=== PATIENT | male | born 1950 | race Caucasian/White ===

== ENCOUNTER 2017-07-01 13:07 | Inpatient (IN) | payer MEDICARE, OTHER ==
[2017-07-01] MEDS ORDERED: Sodium Chloride 0.9% 10 ML Syringe FLUSH PRN (13:32)
[2017-07-01] MEDS ORDERED: Sodium Chloride 0.9% 1,000 ML IV ONE (13:34)
--- NOTE | 2017-07-01 14:11 | EDM.PDOC ---
ED HPI GENERAL MEDICAL PROBLEM - General Chief Complaint: General Stated Complaint: weakness Time Seen by Provider: 07/01/17 13:30 Source of Information: Reports: Patient, EMS, Old Records History Limitations: Reports: Other (Unknown if intoxicated. Is somewhat confused about acute medical problems.) - History of Present Illness INITIAL COMMENTS - FREE TEXT/NARRATIVE: Pt. was found on the toilet, unable to ambulate, by his neighbor this morning. Pt. states that he spent several hours on the toilet today. He doesn't know exactly how long he was on the toilet, and doesn't remember what time he sad down on it. He states that he has been experiencing weakness in his legs for the past several days. He offers no other complaints and denies any discomfort otherwise. Pt. was somewhat confused for EMS, and thinks he last ate yesterday. He also drinks a pint of hard alcohol (whiskey) every 2 days, and thinks that his last drink was 2 days ago, but isn't 100% sure. He denies any street drug use. He was incontinent of stool and urine while enroute to the hospital. He denies any incontinence, diarrhea, vomiting, or nausea prior to today. Other than this , he offers no complaints. He states that Dr. Belle is is primary care provider and that he has a history of hypertension. He presents to the ER with prescriptions of amlodipine and metoprolol for 2012. He states that he has chosen not to treat his high blood pressure. He was seen in the ER by myself in 2016 for cellulitis secondary to an untreated cut. He was treated with Augmentin, and still had several doses of the medication left. Pt. states that he lives alone in [place], [place]. His closest relative is a sister in [place], [place]. 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 Onset: Gradual Onset Date: 06/30/17 Duration: Getting Worse Location: Reports: Generalized Associated Symptoms: Reports: Confusion, Other ("dizziness") Back Pain Score (Numeric/FACES): 6 - Related Data Allergies Allergy/AdvReac Type Severity Reaction Status Date / Time No Known Allergies Allergy Verified 07/01/17 13:37 Home Meds: Home Meds . [No Known Home Meds] 12/11/15 [History] Past Medical History Cardiovascular History: Reports: Hypertension Psychiatric History: Reports: Addiction (Drinks approx. pint of alcohol every 2 days.) - Past Surgical History HEENT Surgical History: Reports: Tonsillectomy Social & Family History - Tobacco Use Smoking Status *Q: Current Every Day Smoker Years of Tobacco use: 25 Packs/Tins Daily: 0.7 - Alcohol Use Alcohol Use History: Yes Days Per Week of Alcohol Use: 7 Number of Drinks Per Day Comment: "half pint of whiskey per day" Date of Last Drink: 06/30/17 Date/Time of Last Drink Comment: Thinks possibly last drink was yesterday- unsure. 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 in [employer]) ED ROS GENERAL - Review of Systems Review Of Systems: See Below Constitutional: Reports: Weakness HEENT: Reports: Vertigo Respiratory: Reports: No Symptoms Cardiovascular: Reports: Lightheadedness Endocrine: Reports: No Symptoms GI/Abdominal: Reports: Stool Incontinence : Reports: Incontinence Musculoskeletal: Reports: No Symptoms Skin: Reports: Rash, Erythema (several areas if skin stasis change/skin breakdown to backside), Change in Color Neurological: Reports: Confusion, Tremors, Difficulty Walking, Weakness Psychiatric: Reports: No Symptoms Hematologic/Lymphatic: Reports: No Symptoms Immunologic: Reports: No Symptoms ED EXAM, GENERAL - Physical Exam Exam: See Below Exam Limited By: No Limitations General Appearance: Alert, No Apparent Distress, Lethargic, Thin, Cachetic Eye Exam: Bilateral Eye: EOMI, Normal Fundi, Normal Inspection Ears: Normal External Exam Ear Exam: Bilateral Ear: Auricle Normal Nose: Normal Inspection, Normal Mucosa, No Blood Throat/Mouth: Normal Inspection, Normal Lips, Normal Oropharynx, Normal Voice, No Airway Compromise Head: Atraumatic, Normocephalic Neck: Normal Inspection, Supple, Non-Tender Respiratory/Chest: No Respiratory Distress, Lungs Clear, Normal Breath Sounds Cardiovascular: Normal Peripheral Pulses, Regular Rate, Rhythm, No Edema, No JVD , No Murmur Peripheral Pulses: 2+: Dorsalis Pedis (L), Dorsalis Pedis (R), 3+: Radial (L), Radial (R) GI/Abdominal: Normal Bowel Sounds, Soft, Non-Tender, No Organomegaly, No Distention (Male) Exam: Deferred Rectal (Males) Exam: Deferred Back Exam: Normal Inspection, Other (several areas of stasis erythema to buttocks and coccyx. Open area of superficial skin breakdown.) Extremities: Normal Inspection Neurological: Alert, CN II-XII Intact Psychiatric: Normal Affect, Normal Mood Skin Exam: Warm, Decubitus, Erythema Lymphatic: No Adenopathy EKG INTERPRETATION EKG Date: 07/01/17 Time: 14:42 Rhythm: NSR Rate (Beats/Min): 70 Adin: Normal P-Wave: Present QRS: Normal ST-T: Normal QT: Normal Comparison: NA - No Prior EKG Course - Vital Signs Last Recorded V/S: Last Vital Signs Temp 36.3 C 07/01/17 15:56 Pulse 96 07/01/17 15:56 Resp 20 07/01/17 15:56 BP 143/89 H 07/01/17 15:56 Pulse Ox 99 07/01/17 15:56 - Orders/Labs/Meds Orders: Active Orders 24 hr Category Date Time Status EKG Documentation Completion [RC] STAT Care 07/01/17 13:32 Ordered Chest 1V Frontal [CR] Stat Exams 07/01/17 13:33 Taken Head wo Cont [CT] Stat Exams 07/01/17 13:32 Taken CULTURE BLOOD [BC] Stat Lab 07/01/17 13:40 Received CULTURE BLOOD [BC] Stat Lab 07/01/17 13:50 Received Sodium Chloride 0.9% [Saline Flush] Med 07/01/17 13:32 Active 10 ml FLUSH ASDIRECTED PRN Blood Culture x2 Reflex Set [OM.PC] Stat Oth 07/01/17 13:33 Ordered Peripheral IV Insertion Adult [OM.PC] Routine Oth 07/01/17 13:33 Ordered Medication Orders Enoxaparin Sodium (Lovenox) 30 mg SUBCUT DAILY [facility] Folic Acid (Folic Acid) 1 mg PO DAILY [facility] Last Admin: 07/01/17 17:12 Dose: 1 mg Sodium Chloride (Normal Saline) 1,000 mls @ 250 mls/hr IV ASDIRECTED [facility] Last Admin: 07/01/17 15:00 Dose: 250 mls/hr Lactated Ringer's (Ringers, Lactated) 1,000 mls @ 200 mls/hr IV ASDIRECTED [facility] Last Admin: 07/01/17 17:12 Dose: 200 mls/hr Magnesium Sulfate (Magnesium Sulfate 4 Gm In Water 100 Ml) 100 mls @ 25 mls/hr IV ONETIME ONE Stop: 07/01/17 20:38 Last Admin: 07/01/17 17:12 Dose: 25 mls/hr Lorazepam (Ativan) 1 mg IVPUSH Q4H PRN PRN Reason: Agitation Multivitamins/Minerals (Thera M Plus) 1 tab PO DAILY [facility] Last Admin: 07/01/17 17:12 Dose: 1 tab Pantoprazole Sodium (Protonix Iv) 40 mg IVPUSH BID@0800,2000 [facility] Last Admin: 07/01/17 17:12 Dose: 40 mg Sodium Chloride (Saline Flush) 10 ml FLUSH ASDIRECTED PRN PRN Reason: Keep Vein Open Sodium Phosphate (Neutra-Phos) 500 mg PO BID [facility] Last Admin: 07/01/17 17:12 Dose: 500 mg Thiamine HCl (Vitamin B-1) 100 mg PO DAILY [facility] Last Admin: 07/01/17 17:12 Dose: 100 mg Pt. was given a 1,000ml fluid bolus initially (indication-rhabdomyolysis) and then a second liter at 250ml/hr. Pt. was subsequently started on a "banana bag" Pt. offered no complaints of chest pain or shortness of breath. UA obtained via quick cath. On Labs: Laboratory Tests 07/01/17 07/01/17 07/01/17 Range/Units 13:40 13:40 13:40 WBC 8.3 (4.0-10.0) x10^3/uL RBC 3.53 L (4.5-6.0) x10^6/uL Hgb 12.7 L D (14.0-18.0) g/dL Hct 36.1 L (40.0-52.0) % MCV 102.3 H (78.0-93.0) fL MCH 36.0 H (26.0-32.0) pg MCHC 35.2 (32.0-36.0) g/dL RDW Coeff of Aman 13.0 (10.0-15.0) % Plt Count 113 L (130-400) x10^3/uL Neut % (Auto) 82.4 H (50.0-80.0) % Lymph % (Auto) 6.6 L (25.0-50.0) % Mower % (Auto) 10.4 (2.0-11.0) % Eos % (Auto) 0.1 (0.0-4.0) % Baso % (Auto) 0.5 (0.2-1.2) % PT 11.7 (9.8-11.8) SEC INR 1.1 L (2.0-3.5) Sodium 137 (136-145) mmol/L Potassium 3.8 (3.5-5.1) mmol/L Chloride 97 L (98-107) mmol/L Carbon Dioxide 24 (21-32) mmol/L BUN 52 H D (7-18) mg/dL Creatinine 2.2 H D (0.70-1.30) mg/dL Est Cr Clr Drug Dosing 31.69 mL/min Estimated GFR (MDRD) 30 Glucose 169 H (74-106) mg/dL Lactic Acid (0.4-2.0) mmol/L Calcium 10.8 H (8.5-10.1) mg/dL Corrected Calcium 10.80 H (8.5-10.1) mg/dL Phosphorus (2.6-4.7) mg/dL Magnesium (1.8-2.4) mg/dL Total Bilirubin 1.1 H (0.2-1.0) mg/dL AST 162 H (15-37) U/L ALT 81 H (16-63) U/L Alkaline Phosphatase 78 (46-116) U/L Creatine Kinase 2054 H* (39-308) U/L Creatine Kinase Index 0.6 (0.0-4.0) % CK-MB (CK-2) 12.1 H (0.0-3.6) ng/mL C-Reactive Protein 11.3 H (<=0.9) mg/dL Total Protein 8.3 H (6.4-8.2) g/dL Albumin 4.0 (3.4-5.0) g/dL Globulin 4.3 Albumin/Globulin Ratio 0.93 TSH, Ultra Sensitive 1.203 (0.358-3.74) uIU/mL Urine Color (YELLOW) Urine Appearance (CLEAR) Urine pH (5.0-8.0) Ur Specific [place] Urine Protein (NEGATIVE) mg/dL Urine Glucose (UA) (NEGATIVE) mg/dL Urine Ketones (NEGATIVE) mg/dL Urine Occult Blood (NEGATIVE) Urine Nitrite (NEGATIVE) Urine Bilirubin (NEGATIVE) Urine Urobilinogen (0.2) EU/dL Ur Leukocyte Esterase (NEGATIVE) Urine RBC (NOT SEEN) /HPF Urine WBC (NOT SEEN) /HPF Ur Renal Epithelial Cell (NEGATIVE) /HPF Amorphous Sediment Urine Bacteria (NEGATIVE) /HPF Hyaline Casts (NEGATIVE) /HPF Granular Casts (NEGATIVE) /HPF Urine Mucus (NEGATIVE) /LPF Urine Opiates Screen (NEAGTIVE) Ur Buprenorphine Scrn (NEGATIVE) Ur Oxycodone Screen (NEGATIVE) Urine Methadone Screen (NEGATIVE) Ur Barbiturates Screen (NEGATIVE) Ur Tricyclics Screen (NEGATIVE) Ur Amphetamine Screen (NEGATIVE) U Methamphetamines Scrn (NEGATIVE) Urine MDMA Screen (NEGATIVE) U Benzodiazepines Scrn (NEGATIVE) U Cocaine Metab Screen (NEGATIVE) U Marijuana (THC) Screen (NEGATIVE) Ethyl Alcohol < 3 (0-3) mg/dL 07/01/17 07/01/17 07/01/17 Range/Units 13:40 13:40 14:43 WBC (4.0-10.0) x10^3/uL RBC (4.5-6.0) x10^6/uL Hgb (14.0-18.0) g/dL Hct (40.0-52.0) % MCV (78.0-93.0) fL MCH (26.0-32.0) pg MCHC (32.0-36.0) g/dL RDW Coeff of Aman (10.0-15.0) % Plt Count (130-400) x10^3/uL Neut % (Auto) (50.0-80.0) % Lymph % (Auto) (25.0-50.0) % Mower % (Auto) (2.0-11.0) % Eos % (Auto) (0.0-4.0) % Baso % (Auto) (0.2-1.2) % PT (9.8-11.8) SEC INR (2.0-3.5) Sodium (136-145) mmol/L Potassium (3.5-5.1) mmol/L Chloride (98-107) mmol/L Carbon Dioxide (21-32) mmol/L BUN (7-18) mg/dL Creatinine (0.70-1.30) mg/dL Est Cr Clr Drug Dosing mL/min Estimated GFR (MDRD) Glucose (74-106) mg/dL Lactic Acid 2.8 H (0.4-2.0) mmol/L Calcium (8.5-10.1) mg/dL Corrected Calcium (8.5-10.1) mg/dL Phosphorus 2.1 L (2.6-4.7) mg/dL Magnesium 1.4 L (1.8-2.4) mg/dL Total Bilirubin (0.2-1.0) mg/dL AST (15-37) U/L ALT (16-63) U/L Alkaline Phosphatase (46-116) U/L Creatine Kinase (39-308) U/L Creatine Kinase Index (0.0-4.0) % CK-MB (CK-2) (0.0-3.6) ng/mL C-Reactive Protein (<=0.9) mg/dL Total Protein (6.4-8.2) g/dL Albumin (3.4-5.0) g/dL Globulin Albumin/Globulin Ratio TSH, Ultra Sensitive (0.358-3.74) uIU/mL Urine Color Brown H (YELLOW) Urine Appearance Turbid H (CLEAR) Urine pH 5.5 (5.0-8.0) Ur Specific [place] >=1.030 Urine Protein >=300 H (NEGATIVE) mg/dL Urine Glucose (UA) 100 H (NEGATIVE) mg/dL Urine Ketones 40 H (NEGATIVE) mg/dL Urine Occult Blood Large H (NEGATIVE) Urine Nitrite Negative (NEGATIVE) Urine Bilirubin Large H (NEGATIVE) Urine Urobilinogen 4.0 H (0.2) EU/dL Ur Leukocyte Esterase Negative (NEGATIVE) Urine RBC 5-10 H (NOT SEEN) /HPF Urine WBC 0-5 (NOT SEEN) /HPF Ur Renal Epithelial Cell Occasional H (NEGATIVE) /HPF Amorphous Sediment Many Urine Bacteria Few H (NEGATIVE) /HPF Hyaline Casts Moderate H (NEGATIVE) /HPF Granular Casts Few H (NEGATIVE) /HPF Urine Mucus Few H (NEGATIVE) /LPF Urine Opiates Screen (NEAGTIVE) Ur Buprenorphine Scrn (NEGATIVE) Ur Oxycodone Screen (NEGATIVE) Urine Methadone Screen (NEGATIVE) Ur Barbiturates Screen (NEGATIVE) Ur Tricyclics Screen (NEGATIVE) Ur Amphetamine Screen (NEGATIVE) U Methamphetamines Scrn (NEGATIVE) Urine MDMA Screen (NEGATIVE) U Benzodiazepines Scrn (NEGATIVE) U Cocaine Metab Screen (NEGATIVE) U Marijuana (THC) Screen (NEGATIVE) Ethyl Alcohol (0-3) mg/dL 07/01/17 Range/Units 14:43 WBC (4.0-10.0) x10^3/uL RBC (4.5-6.0) x10^6/uL Hgb (14.0-18.0) g/dL Hct (40.0-52.0) % MCV (78.0-93.0) fL MCH (26.0-32.0) pg MCHC (32.0-36.0) g/dL RDW Coeff of Aman (10.0-15.0) % Plt Count (130-400) x10^3/uL Neut % (Auto) (50.0-80.0) % Lymph % (Auto) (25.0-50.0) % Mower % (Auto) (2.0-11.0) % Eos % (Auto) (0.0-4.0) % Baso % (Auto) (0.2-1.2) % PT (9.8-11.8) SEC INR (2.0-3.5) Sodium (136-145) mmol/L Potassium (3.5-5.1) mmol/L Chloride (98-107) mmol/L Carbon Dioxide (21-32) mmol/L BUN (7-18) mg/dL Creatinine (0.70-1.30) mg/dL Est Cr Clr Drug Dosing mL/min Estimated GFR (MDRD) Glucose (74-106) mg/dL Lactic Acid (0.4-2.0) mmol/L Calcium (8.5-10.1) mg/dL Corrected Calcium (8.5-10.1) mg/dL Phosphorus (2.6-4.7) mg/dL Magnesium (1.8-2.4) mg/dL Total Bilirubin (0.2-1.0) mg/dL AST (15-37) U/L ALT (16-63) U/L Alkaline Phosphatase (46-116) U/L Creatine Kinase (39-308) U/L Creatine Kinase Index (0.0-4.0) % CK-MB (CK-2) (0.0-3.6) ng/mL C-Reactive Protein (<=0.9) mg/dL Total Protein (6.4-8.2) g/dL Albumin (3.4-5.0) g/dL Globulin Albumin/Globulin Ratio TSH, Ultra Sensitive (0.358-3.74) uIU/mL Urine Color (YELLOW) Urine Appearance (CLEAR) Urine pH (5.0-8.0) Ur Specific [place] Urine Protein (NEGATIVE) mg/dL Urine Glucose (UA) (NEGATIVE) mg/dL Urine Ketones (NEGATIVE) mg/dL Urine Occult Blood (NEGATIVE) Urine Nitrite (NEGATIVE) Urine Bilirubin (NEGATIVE) Urine Urobilinogen (0.2) EU/dL Ur Leukocyte Esterase (NEGATIVE) Urine RBC (NOT SEEN) /HPF Urine WBC (NOT SEEN) /HPF Ur Renal Epithelial Cell (NEGATIVE) /HPF Amorphous Sediment Urine Bacteria (NEGATIVE) /HPF Hyaline Casts (NEGATIVE) /HPF Granular Casts (NEGATIVE) /HPF Urine Mucus (NEGATIVE) /LPF Urine Opiates Screen Negative (NEAGTIVE) Ur Buprenorphine Scrn Negative (NEGATIVE) Ur Oxycodone Screen Negative (NEGATIVE) Urine Methadone Screen Negative (NEGATIVE) Ur Barbiturates Screen Negative (NEGATIVE) Ur Tricyclics Screen Negative (NEGATIVE) Ur Amphetamine Screen Negative (NEGATIVE) U Methamphetamines Scrn Negative (NEGATIVE) Urine MDMA Screen Negative (NEGATIVE) U Benzodiazepines Scrn Negative (NEGATIVE) U Cocaine Metab Screen Negative (NEGATIVE) U Marijuana (THC) Screen Negative (NEGATIVE) Ethyl Alcohol (0-3) mg/dL Meds: Medications Generic Name Dose Route Start Last Admin Trade Name Freq PRN Reason Stop Dose Admin Enoxaparin Sodium 30 mg 07/02/17 08:00 Lovenox SUBCUT DAILY [facility] Folic Acid 1 mg 07/01/17 16:45 07/01/17 17:12 Folic Acid PO 1 mg DAILY [facility] Administration Sodium Chloride 1,000 mls @ 250 mls/hr 07/01/17 15:00 07/01/17 15:00 Normal Saline IV 250 mls/hr ASDIRECTED [facility] Administration Lactated Ringer's 1,000 mls @ 200 mls/hr 07/01/17 16:30 07/01/17 17:12 Ringers, Lactated IV 200 mls/hr ASDIRECTED [facility] Administration Magnesium Sulfate 100 mls @ 25 mls/hr 07/01/17 16:39 07/01/17 17:12 Magnesium Sulfate 4 Gm In Water 100 Ml IV 07/01/17 20:38 25 mls/hr ONETIME ONE Administration Lorazepam 1 mg 07/01/17 16:06 Ativan IVPUSH Q4H PRN Agitation Multivitamins/Minerals 1 tab 07/01/17 16:30 07/01/17 17:12 Thera M Plus PO 1 tab DAILY [facility] Administration Pantoprazole Sodium 40 mg 07/01/17 16:30 07/01/17 17:12 Protonix Iv IVPUSH 40 mg BID@0800,2000 [facility] Administration Sodium Chloride 10 ml 07/01/17 13:32 Saline Flush FLUSH ASDIRECTED PRN Keep Vein Open Sodium Phosphate 500 mg 07/01/17 17:00 07/01/17 17:12 Neutra-Phos PO 500 mg BID [facility] Administration Thiamine HCl 100 mg 07/01/17 16:45 07/01/17 17:12 Vitamin B-1 PO 100 mg DAILY [facility] Administration Discontinued Medications Generic Name Dose Route Start Last Admin Trade Name Freq PRN Reason Stop Dose Admin Sodium Chloride 1,000 mls @ 1,000 mls/hr 07/01/17 13:34 07/01/17 13:54 Normal Saline IV 07/01/17 14:33 1,000 mls/hr .BOLUS ONE Administration Departure - Departure Time of Disposition: 15:44 Disposition: Admitted As Inpatient 64 Clinical Impression: Acute renal injury due to hypovolemia, Rhabdomyolysis, Delirium tremens - Discharge Information - Problem List & Annotations (1) Acute renal injury due to hypovolemia SNOMED Code(s): 240235536 Code(s): N17.9 - ACUTE KIDNEY FAILURE, UNSPECIFIED; E86.1 - HYPOVOLEMIA Status: Acute Priority: High Current Visit: Yes (2) Rhabdomyolysis SNOMED Code(s): 552946529 Code(s): M62.82 - RHABDOMYOLYSIS Status: Acute Priority: High Current Visit: Yes Qualifiers: Encounter type: initial encounter (3) Delirium tremens SNOMED Code(s): 5606498 Code(s): F10.231 - ALCOHOL DEPENDENCE WITH WITHDRAWAL DELIRIUM Status: Acute Priority: High Current Visit: Yes (4) Hypertension SNOMED Code(s): 19251296 Code(s): I10 - ESSENTIAL (PRIMARY) HYPERTENSION Status: Acute Current Visit: Yes Qualifiers: Hypertension type: essential hypertension Qualified Code(s): I10 - Essential (primary) hypertension - My Orders Last 24 Hours: My Active Orders 07/01/17 13:32 EKG Documentation Completion [RC] STAT Head wo Cont [CT] Stat Sodium Chloride 0.9% [Saline Flush] 10 ml FLUSH ASDIRECTED PRN 07/01/17 13:33 Chest 1V Frontal [CR] Stat Blood Culture x2 Reflex Set [OM.PC] Stat Peripheral IV Insertion Adult [OM.PC] Routine 07/01/17 13:40 CULTURE BLOOD [BC] Stat 07/01/17 13:50 CULTURE BLOOD [BC] Stat - Assessment/Plan Last 24 Hours: My Active Orders 07/01/17 13:32 EKG Documentation Completion [RC] STAT Head wo Cont [CT] Stat Sodium Chloride 0.9% [Saline Flush] 10 ml FLUSH ASDIRECTED PRN 07/01/17 13:33 Chest 1V Frontal [CR] Stat Blood Culture x2 Reflex Set [OM.PC] Stat Peripheral IV Insertion Adult [OM.PC] Routine 07/01/17 13:40 CULTURE BLOOD [BC] Stat 07/01/17 13:50 CULTURE BLOOD [BC] Stat Assessment:: Acute kidney injury Hypovolemia Rhabdomyolisis Acute alcohol withdrawl and early DTs Plan: Normal saline 1000ml bolus given. Initialed second bolus NS at 250ml/hr. Will reevaluate pt.-at this point will start pt. on maintenance LR at 200ml/hr. Haley catheter indication: MARIANNE/hypovolemia/rhabdomyolysis and need for strict I and O. Mag sulfate 4 gm over 4 hours Replete phos. Start protonix 40mg IV BID Lovenox 30mg SQ daily for DVT prophylaxis (renally adjusted) start oral multi vitamin, thiamine, B12 and folic acid FOBT pending Repeat CBC, CMP, Mag, phos and CXR in am PT/OT evaluate and treat in AM
[2017-07-01 14:48] LABS: CHLORIDE,CL 97 mmol/L (98-107); SODIUM,NA 137 mmol/L (136-145)
[2017-07-01] MEDS ORDERED: Sodium Chloride 0.9% 1,000 ML IV SCH (15:00)
[2017-07-01] MEDS ORDERED: LORazepam 2 MG/ML SDV IVPUSH PRN (16:06)
[2017-07-01] MEDS ORDERED: Magnesium Sulfate/Water 100 ML IV ONE (16:39)
[2017-07-01] MEDS: Thiamine 100 MG Tab PO SCH (17:12)
[2017-07-01] MEDS: Phosphorus #1 250 MG Tab PO SCH ×2 (17:12→20:28)
[2017-07-01] MEDS: Multivitamins with Iron/Calcium/Folic Acid/Minerals Tab PO SCH (17:12)
[2017-07-01] MEDS: Lactated Ringers 1,000 ML IV SCH (17:12)
[2017-07-01] MEDS: Pantoprazole 40 MG Vial IVPUSH SCH (17:12)
[2017-07-01] MEDS: Folic Acid 1 MG Tab PO SCH (17:12)
[2017-07-02] MEDS: Lactated Ringers 1,000 ML IV SCH ×3 (00:10→06:36)
[2017-07-02] MEDS: Phosphorus #1 250 MG Tab PO SCH ×2 (07:36→20:45)
[2017-07-02] MEDS: Multivitamins with Iron/Calcium/Folic Acid/Minerals Tab PO SCH (07:36)
[2017-07-02] MEDS: Pantoprazole 40 MG Vial IVPUSH SCH (07:36)
[2017-07-02] MEDS: Thiamine 100 MG Tab PO SCH (07:36)
[2017-07-02] MEDS: Folic Acid 1 MG Tab PO SCH (07:36)
[2017-07-02] MEDS ORDERED: Enoxaparin 30 MG/0.3 ML Syringe SUBCUT SCH (08:00)
[2017-07-02] MEDS: Sodium Chloride 0.9% with KCl 1,000 ML IV SCH ×2 (09:06→17:17)
--- NOTE | 2017-07-02 11:13 | PCM.PN ---
- General Info Date of Service: 07/02/17 Admission Dx/Problem (Free Text): Subjective: Patient was admitted yesterday after coming in by EMS for weakness. Found by his neighbor unable to get off toilet. Unknown how long he was there may be day or more. He lives alone quite confined to his house otherwise. He has a neighbor who checks them and another lady who goes to the store for him. He drinks at least a half a pint of whiskey daily. He is not having any withdrawal symptoms now. He appeared quite dehydrated with some acute kidney injury on admission, IV fluids were started. He had some rhabdo and mild pressure ulceration sitting on toilet, CPK is coming down. He denies any pain or focal complaints. Physician's orthopedic physician assistant reported he had negative CT head and chest x-ray. Objective: Vital signs are normal. He is quite check second thin. Affect is slightly slowed. He has no gross tremor or diaphoresis. Heart and lungs are clear abdomen is soft and nontender. Muscle wasting of extremities. She requires assistance of two and still has difficulty standing, generally unable to ambulate. Assessment and plan: Acute kidney injury is improving with IV fluid challenge. Given low potassium will switch to normal saline with 40 [facility] KCl continue fluids at one 25 mL for another day recheck chemistry in a.m. and then probably stop fluids and DC Haley catheter. Mild rhabdomyolysis with CK less than 5000, trending downward, I don't see this contributing to MARIANNE at this time. He is severely deconditioned. Physical therapy is recommending detention. PT has not seen patient yet. He lives alone he would be somewhat vulnerable and his current physical state. Mentally he still appears mostly intact. He has anemia, noniron deficient, I suspect this is from chronic alcohol use, perhaps some mild cirrhosis but otherwise liver function appears grossly intact. Not going through any gross alcohol withdrawals currently, can switch CIWA to PRN. Blood pressure currently okay had been on medicine for hypertension in the past. - Patient Data Vitals - Most Recent: Last Vital Signs Temp 36.8 C 07/02/17 10:00 Pulse 70 07/02/17 10:00 Resp 16 07/02/17 10:00 BP 138/79 07/02/17 10:00 Pulse Ox 96 07/02/17 10:00 Weight - Most Recent: 57.262 kg I&O - Last 24 Hours: Intake & Output 07/01/17 07/02/17 07/02/17 22:59 06:59 14:59 Intake Total 378 3866 615 Output Total 405 Balance 378 5049 615 Lab Results Last 24 Hours: Laboratory Results - last 24 hr 07/02/17 07/02/17 07/02/17 Range/Units 06:10 06:40 06:40 WBC 4.5 (4.0-10.0) x10^3/uL RBC 2.56 L (4.5-6.0) x10^6/uL Hgb 9.3 L D (14.0-18.0) g/dL Hct 25.9 L (40.0-52.0) % MCV 101.2 H (78.0-93.0) fL MCH 36.3 H (26.0-32.0) pg MCHC 35.9 (32.0-36.0) g/dL RDW Coeff of Aman 12.7 (10.0-15.0) % Plt Count 77 L (130-400) x10^3/uL Neut % (Auto) 67.0 (50.0-80.0) % Lymph % (Auto) 17.0 L (25.0-50.0) % Winkler % (Auto) 13.0 H (2.0-11.0) % Eos % (Auto) 2.6 (0.0-4.0) % Baso % (Auto) 0.4 (0.2-1.2) % ESR 31 H (0-16) mm/hr Sodium 141 (136-145) mmol/L Potassium 2.8 L* (3.5-5.1) mmol/L Chloride 106 (98-107) mmol/L Carbon Dioxide 26 (21-32) mmol/L BUN 41 H (7-18) mg/dL Creatinine 1.4 H (0.70-1.30) mg/dL Est Cr Clr Drug Dosing 40.33 mL/min Estimated GFR (MDRD) 50 Glucose 142 H (74-106) mg/dL POC Glucose 137 H (74-106) mg/dL Calcium 9.0 D (8.5-10.1) mg/dL Corrected Calcium 10.20 H (8.5-10.1) mg/dL Magnesium 2.0 (1.8-2.4) mg/dL Iron (65-175) ug/dL TIBC (250-450) ug/dL % Saturation (20.0-50.0) % Total Bilirubin 0.8 (0.2-1.0) mg/dL AST 103 H (15-37) U/L ALT 48 (16-63) U/L Alkaline Phosphatase 52 (46-116) U/L Creatine Kinase (39-308) U/L C-Reactive Protein 6.5 H (<=0.9) mg/dL Total Protein 5.4 L (6.4-8.2) g/dL Albumin 2.5 L (3.4-5.0) g/dL Globulin 2.9 Albumin/Globulin Ratio 0.86 Urine Color (YELLOW) Urine Appearance (CLEAR) Urine pH (5.0-8.0) Ur Specific Fitzwilliam Urine Protein (NEGATIVE) mg/dL Urine Glucose (UA) (NEGATIVE) mg/dL Urine Ketones (NEGATIVE) mg/dL Urine Occult Blood (NEGATIVE) Urine Nitrite (NEGATIVE) Urine Bilirubin (NEGATIVE) Urine Urobilinogen (0.2) EU/dL Ur Leukocyte Esterase (NEGATIVE) 07/02/17 07/02/17 07/02/17 Range/Units 06:40 07:47 08:55 WBC (4.0-10.0) x10^3/uL RBC (4.5-6.0) x10^6/uL Hgb (14.0-18.0) g/dL Hct (40.0-52.0) % MCV (78.0-93.0) fL MCH (26.0-32.0) pg MCHC (32.0-36.0) g/dL RDW Coeff of Aman (10.0-15.0) % Plt Count (130-400) x10^3/uL Neut % (Auto) (50.0-80.0) % Lymph % (Auto) (25.0-50.0) % Winkler % (Auto) (2.0-11.0) % Eos % (Auto) (0.0-4.0) % Baso % (Auto) (0.2-1.2) % ESR (0-16) mm/hr Sodium (136-145) mmol/L Potassium (3.5-5.1) mmol/L Chloride (98-107) mmol/L Carbon Dioxide (21-32) mmol/L BUN (7-18) mg/dL Creatinine (0.70-1.30) mg/dL Est Cr Clr Drug Dosing mL/min Estimated GFR (MDRD) Glucose (74-106) mg/dL POC Glucose (74-106) mg/dL Calcium (8.5-10.1) mg/dL Corrected Calcium (8.5-10.1) mg/dL Magnesium (1.8-2.4) mg/dL Iron 65 (65-175) ug/dL TIBC 128 L (250-450) ug/dL % Saturation 50.8 H (20.0-50.0) % Total Bilirubin (0.2-1.0) mg/dL AST (15-37) U/L ALT (16-63) U/L Alkaline Phosphatase (46-116) U/L Creatine Kinase 940 H* (39-308) U/L C-Reactive Protein (<=0.9) mg/dL Total Protein (6.4-8.2) g/dL Albumin (3.4-5.0) g/dL Globulin Albumin/Globulin Ratio Urine Color Yellow (YELLOW) Urine Appearance Slightly cloudy H (CLEAR) Urine pH 5.5 (5.0-8.0) Ur Specific Fitzwilliam 1.025 Urine Protein 100 H (NEGATIVE) mg/dL Urine Glucose (UA) Negative (NEGATIVE) mg/dL Urine Ketones Trace H (NEGATIVE) mg/dL Urine Occult Blood Large H (NEGATIVE) Urine Nitrite Negative (NEGATIVE) Urine Bilirubin Moderate H (NEGATIVE) Urine Urobilinogen 1.0 (0.2) EU/dL Ur Leukocyte Esterase Negative (NEGATIVE) Med Orders - Current: Current Medications Enoxaparin Sodium (Lovenox) 30 mg SUBCUT DAILY [facility] Last Admin: 07/02/17 07:36 Dose: 30 mg Folic Acid (Folic Acid) 1 mg PO DAILY [facility] Last Admin: 07/02/17 07:36 Dose: 1 mg Potassium Chloride/Sodium Chloride (Normal Saline With 40 Meq Kcl) 1,000 mls @ 125 mls/hr IV ASDIRECTED [facility] Last Admin: 07/02/17 09:06 Dose: 125 mls/hr Lorazepam (Ativan) 1 mg IVPUSH Q4H PRN PRN Reason: Agitation Multivitamins/Minerals (Thera M Plus) 1 tab PO DAILY [facility] Last Admin: 07/02/17 07:36 Dose: 1 tab Pantoprazole Sodium (Protonix Iv) 40 mg IVPUSH BID@799,1999 [facility] Last Admin: 07/02/17 07:36 Dose: 40 mg Sodium Chloride (Saline Flush) 10 ml FLUSH ASDIRECTED PRN PRN Reason: Keep Vein Open Sodium Phosphate (Neutra-Phos) 500 mg PO BID [facility] Last Admin: 07/02/17 07:36 Dose: 500 mg Thiamine HCl (Vitamin B-1) 100 mg PO DAILY [facility] Last Admin: 07/02/17 07:36 Dose: 100 mg Discontinued Medications Sodium Chloride (Normal Saline) 1,000 mls @ 1,000 mls/hr IV .BOLUS ONE Stop: 07/01/17 14:33 Last Admin: 07/01/17 13:54 Dose: 1,000 mls/hr Sodium Chloride (Normal Saline) 1,000 mls @ 250 mls/hr IV ASDIRECTED [facility] Stop: 07/02/17 00:49 Last Admin: 07/01/17 15:00 Dose: 250 mls/hr Lactated Ringer's (Ringers, Lactated) 1,000 mls @ 200 mls/hr IV ASDIRECTED [facility] Last Admin: 07/02/17 06:36 Dose: 200 mls/hr Magnesium Sulfate (Magnesium Sulfate 4 Gm In Water 100 Ml) 100 mls @ 25 mls/hr IV ONETIME ONE Stop: 07/01/17 20:38 Last Admin: 07/01/17 17:12 Dose: 25 mls/hr - Problem List Review Problem List Initiated/Reviewed/Updated: Yes - My Orders Last 24 Hours: My Active Orders 07/01/17 16:39 Consult to Physical Therapy [PT Evaluation and Treatment] [CONS] Routine 07/02/17 08:30 Sodium Chloride 0.9% with KCl [Normal Saline with 40 mEq KCl] 1,000 ml IV ASDIRECTED 07/02/17 08:55 FOLATE [REF] Routine VITAMIN B12 [REF] Routine
[2017-07-03] MEDS: Sodium Chloride 0.9% with KCl 1,000 ML IV SCH ×3 (01:21→21:01)
[2017-07-03] MEDS: Phosphorus #1 250 MG Tab PO SCH ×2 (07:44→20:02)
[2017-07-03] MEDS: Thiamine 100 MG Tab PO SCH (07:44)
[2017-07-03] MEDS: Multivitamins with Iron/Calcium/Folic Acid/Minerals Tab PO SCH (07:44)
[2017-07-03] MEDS: Folic Acid 1 MG Tab PO SCH (07:44)
[2017-07-03 07:52] LABS: CHLORIDE,CL 109 mmol/L (98-107); SODIUM,NA 142 mmol/L (136-145)
[2017-07-03] MEDS: Pantoprazole 40 MG Vial IVPUSH SCH ×2 (09:50→20:02)
--- NOTE | 2017-07-03 09:51 | PN ---
Progress Note for JEANMARIE SALVADOR Date: 07/03/2017 Room #: VM.203 SUBJECTIVE: This is hospital day #3 on a 67-year-old admitted with weakness. He had been found down, unable to get up off the toilet. He had acute renal failure with a creatinine up to 2.2. He had mild rhabdomyolysis. The patient had a Haley catheter placed, but states he had no problem passing urine or voiding prior to admission. He did have significantly low potassium and magnesium. These have been replaced IV. He has been on IV fluids. He is making good urine. He unfortunately has dropped his hemoglobin now from 12.7 to 9.3. Lovenox was stopped yesterday and then down to 8.5 today. Hemoccult was positive, but he denies any blood or black stools. Telemetry has been monitored. There have been no arrhythmias or tachycardia. He has been afebrile. He has a rare occasional cough, but denies shortness of breath. He had a chest x-ray on admission which did not show any infection. Otherwise, the patient admits he drinks alcohol and smokes, but had been unable to drink for about 2 weeks. Random CIWA during the night was only 1. He has not been withdrawing vitally. OBJECTIVE: Vital Signs: Temperature 98.2, pulse 68, blood pressure 144/80, respiratory rate 18, and O2 of 91 on room air. General: He is in no acute distress. Heart: Regular rate and rhythm without murmur. Lungs: Sounds are clear to auscultation bilaterally without crackles or wheezes. Abdomen: Positive bowel sounds. Soft and nontender. Extremities: Warm and dry. No edema. Mental Status: He is alert. He is aware he is at the hospital. He says he has no family locally. A neighbor helps him make decisions if he is not able. Otherwise, the patient does get occasionally confused, does talk to his call light, so does have some confusion. LABORATORY DATA: Lab work again shows normal white count 4.4, hemoglobin 8.5, platelets 92, they had dropped to 77 yesterday, but back up to 92 today. Sodium 142, potassium 3.4, chloride 109, bicarb 25, BUN 28, creatinine 1, glucose 144, albumin 2.3, CK down to 348 from 1999, AST bumped up slightly to 127, but it was 162 on admission, bilirubin 0.8, ALT normal at 57, and alkaline phosphatase normal at 53. Urine drug screen was negative. ASSESSMENT: 1. Generalized weakness, deconditioning, probably related to chronic alcoholism with an acute episode of acute renal failure and rhabdomyolysis, both improving. 2. Acute blood loss anemia due to gastrointestinal bleeding. Possible source could be gastritis given chronic alcohol use. He denies any aspirin or NSAID use. At this point, I will start him on some IV Protonix q.12 hours. We will check a hemoglobin this afternoon. His Lovenox has already been discontinued. 3. History of hypertension. He has been off medications for quite some time. We will continue to monitor. 4. History of alcohol abuse. He is 2 weeks out from using alcohol with no withdrawals. We will continue to monitor closely. Music Artist involved. 5. History of smoking. He declines a nicotine patch. PLAN: At this point, the patient will continue acute cares with IV fluids for his hypokalemia and hypomagnesemia. I will repeat lab work tomorrow. We will slow his fluids down to 90 an hour, but hopefully those can be stopped tomorrow. He will be up and working with therapies and most likely transition over to swing bed tomorrow. We will monitor hemoglobin this afternoon and again tomorrow, transfuse if blood counts go below 7. He will be on SCDs for DVT prophylaxis. MKA: 07/03/2017 08:57:58 MODL: 07/03/2017 09:17:37 /[id number]
[2017-07-04 08:09] LABS: CHLORIDE,CL 109 mmol/L (98-107); SODIUM,NA 140 mmol/L (136-145)
[2017-07-04] MEDS: Pantoprazole 40 MG Vial IVPUSH SCH (08:51)
[2017-07-04] MEDS: Multivitamins with Iron/Calcium/Folic Acid/Minerals Tab PO SCH (08:56)
[2017-07-04] MEDS: Folic Acid 1 MG Tab PO SCH (08:56)
[2017-07-04] MEDS: Thiamine 100 MG Tab PO SCH (08:57)
[2017-07-04] MEDS ORDERED: Magnesium Sulfate/Water 2 GM in Premix Bag 1 BAG IV ONE (10:06)
[2017-07-04] MEDS: Phosphorus #1 250 MG Tab PO SCH ×2 (10:08→10:28)
[2017-07-04] MEDS: traZODone 50 MG Tab PO SCH ×2 (10:09→21:04)
[2017-07-04] MEDS: Nicotine 14 MG/24 Hr Patch TRDERM SCH (10:25)
[2017-07-04] MEDS: Pantoprazole 40 MG Tab.CR PO SCH (10:27)
[2017-07-04] MEDS: Magnesium Oxide 400 MG Tab PO SCH ×2 (10:27→21:05)
[2017-07-04] MEDS: FLUoxetine 20 MG Cap PO SCH (10:27)
[2017-07-04] MEDS: NS + KCl 20mEq/L 1,000 ML IV SCH (10:31)
--- NOTE | 2017-07-04 13:24 | PN ---
Progress Note for JEANMARIE SALVADOR Date: 07/04/2017 Room #: VM.203 SUBJECTIVE: The patient is feeling fairly weak, not very motivated to do much. Yesterday, he had refused physical therapy. He has been noted to be incontinent. The patient is having a difficult time sleeping. He is wondering about nicotine patches as he has been a smoker about a half a pack a day. The patient has never been into chemical dependency treatment before nor AA before. The patient does not have much of an appetite. To note, the patient used to be on blood pressure medications as he has been here on his CIWA protocol. His blood pressure has just been minimally elevated and so we have opted not to place him on antihypertensive medication at the present time. OBJECTIVE: Vital Signs: Temperature is 36.4, pulse 73, blood pressure is 151/88, respiratory rate 18, sats are 97%. Skin: Pale, warm, and dry. Heart: Regular rate and rhythm. Lungs: Have diminished breath sounds on bases. Abdomen: Bowel sounds are present. He does have slight epigastric tenderness. Extremities: Slender, thin. No edema. His skin is noted to be pale. Neurologic: He moves all extremities, however, he does appear to be weak with transitions in bed. Psychiatric: He is very sad, depressed, very quiet speech. Does not maintain good eye contact. LABORATORY DATA: His white blood cell count is 5.9, hemoglobin is stable at 8.6, platelets are 103, slightly improved. MCV is 102.9. Pro-time is 12.0. INR 1.1, which is normal. PTT 24.1, normal is 22 to 34. Sodium 140, potassium 4.0, creatinine 1.0. GFR greater than 60. Glucose 127, calcium 8.6, magnesium low at 1.1. Total bilirubin is 0.8, direct bilirubin 0.35. AST is 148. ALT is 77. CK yesterday was 348. Albumin low at 2.3. Amylase is elevated at 86. IMPRESSION: 1. Rhabdomyolysis. 2. Alcohol withdrawal. 3. Pancreatitis. 4. Depression. 5. Hyperglycemia. 6. Thrombocytopenia related to alcoholism. 7. Tobacco use. 8. Insomnia. PLAN: The patient is still not medically stable to be discharged nor placed on swing bed. We will reduce his IV rate as well as IV potassium. We will start him on oral potassium. We will give him IV magnesium as well as oral magnesium to start. We will start him on antidepressant, Prozac. We will start trazodone for sleep if he is having difficulty sleeping. We will switch his Protonix from IV to oral. We will check his phosphorus level tomorrow. We will check also a hemoglobin A1c tomorrow, however, his blood sugar right now is probably elevated due to stress with withdrawal, but apparently he has had hyperglycemia in the past. He is on SCDs for DVT prophylaxis until he gets up walking around. He was encouraged to work with physical therapy to become ambulatory. We will check a urine on him as well to make certain that his urine is okay and I am not certain that if Community Service Specialist has talked about where the patient may go through chemical dependency care at. GM07/04/2017 10:18:07 MODL: 07/04/2017 13:16:00 /[id number]
[2017-07-05] MEDS: NS + KCl 20mEq/L 1,000 ML IV SCH (05:49)
[2017-07-05] MEDS: Pantoprazole 40 MG Tab.CR PO SCH (06:25)
[2017-07-05] MEDS: Nicotine 14 MG/24 Hr Patch TRDERM SCH (07:53)
[2017-07-05] MEDS: FLUoxetine 20 MG Cap PO SCH (07:54)
[2017-07-05] MEDS: Multivitamins with Iron/Calcium/Folic Acid/Minerals Tab PO SCH (07:54)
[2017-07-05] MEDS: Magnesium Oxide 400 MG Tab PO SCH ×2 (07:54→20:42)
[2017-07-05 08:51] LABS: CHLORIDE,CL 107 mmol/L (98-107); SODIUM,NA 138 mmol/L (136-145)
[2017-07-05] MEDS: Folic Acid 1 MG Tab PO SCH (11:00)
[2017-07-05] MEDS: Thiamine 100 MG Tab PO SCH (11:00)
[2017-07-05] MEDS: Phosphorus #1 250 MG Tab PO SCH ×2 (11:00→20:42)
--- NOTE | 2017-07-05 11:41 | PN ---
Progress Note for JEANMARIE SALVADOR Date: 07/05/2017 Room #: VM.203 SUBJECTIVE: The patient has been relying on nursing staff to do many of his cares for him and not feeling very motivated. He has not thrown up. He denies coughing up much material. He has had a nicotine patch that was started yesterday. The patient is a little bit slow mentation-schaefer. He does not recall if he had a memory test done yet by Occupational Therapy. OBJECTIVE: Vital Signs: His weight is 71.2 kg. Temperature is 36.3, pulse is 86, blood pressure has dropped to 117/77, respiratory rate is 20, and saturations are 94% on room air. Skin: Tull, warm, and dry. Heart: Regular rate and rhythm. Lungs: Some diminished breath sounds bilaterally. Abdomen: Soft. Question slight epigastric tenderness. Extremities: He does have some peripheral edema on his legs. LABORATORY DATA: His lab today came back showing that his hemoglobin is stable at 8.6, white blood cell count 6.4, MCV has improved to 101.7, platelets are improved up to 136 with 58 segs, 11 lymphs, 24 monos, and 5 eosinophiles. Sodium is 130, potassium 3.9, creatinine 0.9, BUN is 15, GFR is greater than 60, and glucose is 141. Hemoglobin A1c is 5.2. Calcium corrected is 10.42. Phosphorus is slightly low at 2.4. AST has improved to 103; ALT 65, improved. Albumin is 2.1. Amylase is slightly improved to 741, lipase is elevated at 3940. TSH is normal at 1.47. IMPRESSION: 1. Rhabdomyolysis, improving. 2. Alcohol withdrawal. 3. Pancreatitis. 4. Depression. 5. Hyperglycemia. 6. Thrombocytopenia, improving. 7. Tobacco use. 8. Hypophosphatemia. 9. Depression. 10.Insomnia. 11.Malnutrition. PLAN: We will increase the patient's oral phosphorus intake today. We will saline lock after his current IV fluids are in. We will check iron storage values on the patient. We will continue him on Protonix orally today. We will add some support landon as we feel that some of his edema is related to malnutrition, and we will have him walk with assistance with nursing, and tomorrow, we will have Physical Therapy assess to see how strong he is to see if he is stable to go to swing bed yet versus to consider inpatient treatment for chemical dependency. GM07/05/2017 11:06:31 MODL: 07/05/2017 11:36:08 /[id number]
[2017-07-05] MEDS: traZODone 50 MG Tab PO SCH (20:42)
[2017-07-06 05:10] VITALS: BP 146/88
[2017-07-06] MEDS: Pantoprazole 40 MG Tab.CR PO SCH (06:35)
[2017-07-06 07:10] LABS: CHLORIDE,CL 104 mmol/L (98-107); SODIUM,NA 136 mmol/L (136-145)
[2017-07-06] MEDS: Nicotine 14 MG/24 Hr Patch TRDERM SCH (07:54)
[2017-07-06] MEDS: Magnesium Oxide 400 MG Tab PO SCH ×2 (07:55→08:00)
[2017-07-06] MEDS: Phosphorus #1 250 MG Tab PO SCH ×2 (07:55→08:00)
[2017-07-06] MEDS: Thiamine 100 MG Tab PO SCH ×2 (07:55→08:00)
[2017-07-06] MEDS: FLUoxetine 20 MG Cap PO SCH ×2 (07:55→08:00)
[2017-07-06] MEDS: Multivitamins with Iron/Calcium/Folic Acid/Minerals Tab PO SCH ×2 (07:55→08:00)
[2017-07-06] MEDS: Folic Acid 1 MG Tab PO SCH ×2 (07:55→08:00)
--- NOTE | 2017-07-06 12:59 | PCM.DCSUM1 ---
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 -Atherosclerosis; carotid artery disease and peripheral vascular disease, noted in the past although he does have palpable pedal pulses now -Hx hypertension; no longer takes antihypertensives and BP is OK -Hx hyperlipidemia; has been on statins in the past -Macrocytic anemia with normal iron -Elevated liver enzymes -Mild pressure sores on coccyx and sacrum Reason for Admission: -Extreme weakness, found by a neighbor unable to get off the toilet -Has started using a walker the past 2 years on his own because of generalized weakness -Drinking pints of whiskey daily Initial Findings: -Shallow skin breakdown over her sacrum and coccyx, erythema, exam except for generalized weakness otherwise rather unremarkable -Hb 8.6 -WBC 6400 -MCV 102 -Na+ 138, K+ 3.9, creatinine 0.9, GFR 63, glucose 154 nonfasting, A1c 5.2, Ca++ 8.9, 10.4 corrected, iron saturation 45%, total bilirubin 0.6, ALT elevated at 65, CK normal at 91, albumin low at 2.1 (normal 3.4-5.0), amylase 741 (normal < 115), lipase 3940 (normal <393), TSH normal at 1.5; urinalysis normal Treatment and Course in Hospital: He had IV fluid and was started on thiamine and multivitamins. Also given when necessary Ativan but didnt really need it, did not have withdrawal symptoms. Started on nicotine patches, oral Protonix and magnesium; started on Prozac 20 mg daily, trazodone 100 mg daily at bedtime. Scheduled for Geriatric Functional Assessment, memory assessment, but has not yet had that. Nurses noted that he seemed to have some trouble swallowing. Not yet scheduled for swallowing eval. BP remained normal off of antihypertensives. He walked with a walker in PT, not yet strong enough to go home. Condition on Discharge: -Answers questions appropriately -VS OK -Heart and lung sounds normal, no abdominal pain or tenderness -Clubbing of fingers and obvious dyspnea when speaking, but breath sounds are fairly good -Starting to walk with walker Discharge Plan: -To swing bed, not known yet whether he will recover well enough to go home -Geriatric Functional Assessment, memory testing pending -May need video swallowing eval in the future if he keeps having trouble swallowing -Continue same medications as in hospital except for the IV and no longer needs Valium - Discharge Data Discharge Date: 07/06/17 Discharge Disposition: DC/Tfer W/I Hosp To Swing 61 Condition: Good - Patient Summary/Data Consults: Consultations 07/01/17 16:39 Consult to Physical Therapy [PT Evaluation and Treatment] [CONS] Routine 07/01/17 16:52 OT Evaluation and Treatment [CONS] Routine 07/01/17 17:40 Consult to Vice President Quality Improvement [CONS] Routine 07/03/17 08:55 OT Evaluation and Treatment [CONS] Routine - Discharge Plan Home Medications: Home Meds . [No Known Home Meds] 12/11/15 [History] Patient Handouts: Fluoxetine capsules or tablets (Depression/Mood Disorders) Referrals: PCP,None [Primary Care Provider] - - Patient Data Vitals - Most Recent: Last Vital Signs Temp 36.7 C 07/06/17 05:08 Pulse 74 07/06/17 01:47 Resp 20 07/06/17 05:08 BP 146/88 H 07/06/17 05:08 Pulse Ox 98 07/06/17 05:08 Weight - Most Recent: 71.214 kg I&O - Last 24 hours: Intake & Output 07/05/17 07/06/17 07/06/17 22:59 06:59 14:59 Intake Total 1546 544 Balance 1546 544 Lab Results - Last 24 hrs: Laboratory Results - last 24 hr 07/05/17 07/06/17 07/06/17 Range/Units 19:29 06:17 06:17 WBC 6.3 (4.0-10.0) x10^3/uL RBC 2.39 L (4.5-6.0) x10^6/uL Hgb 8.5 L (14.0-18.0) g/dL Hct 24.1 L (40.0-52.0) % MCV 100.8 H (78.0-93.0) fL MCH 35.6 H (26.0-32.0) pg MCHC 35.3 (32.0-36.0) g/dL RDW Coeff of Aman 13.1 (10.0-15.0) % Plt Count 163 (130-400) x10^3/uL Add Manual Diff Yes Neutrophils % (Manual) 68 (50-80) % Band Neutrophils % 2 (0-6) % Lymphocytes % (Manual) 13 L (25-50) % Monocytes % (Manual) 13 H (2-11) % Eosinophils % (Manual) 4 (0-4) % Hypersegmented Neuts Rare H Smudge Cells Few H Platelet Estimate Adequate Clumped Platelets Rare H Giant Platelets Rare H Polychromasia Rare Macrocytosis 1+ slight H Target Cells Rare Sodium 136 (136-145) mmol/L Potassium 3.6 (3.5-5.1) mmol/L Chloride 104 (98-107) mmol/L Carbon Dioxide 24 (21-32) mmol/L BUN 13 (7-18) mg/dL Creatinine 0.8 (0.70-1.30) mg/dL Est Cr Clr Drug Dosing 81.48 mL/min Estimated GFR (MDRD) > 60 Glucose 111 H (74-106) mg/dL POC Glucose 149 H (74-106) mg/dL Calcium 8.9 (8.5-10.1) mg/dL Phosphorus 3.1 (2.6-4.7) mg/dL Iron (65-175) ug/dL TIBC (250-450) ug/dL % Saturation (20.0-50.0) % Ferritin (26-388) ng/mL 07/06/17 07/06/17 Range/Units 06:17 06:33 WBC (4.0-10.0) x10^3/uL RBC (4.5-6.0) x10^6/uL Hgb (14.0-18.0) g/dL Hct (40.0-52.0) % MCV (78.0-93.0) fL MCH (26.0-32.0) pg MCHC (32.0-36.0) g/dL RDW Coeff of Aman (10.0-15.0) % Plt Count (130-400) x10^3/uL Add Manual Diff Neutrophils % (Manual) (50-80) % Band Neutrophils % (0-6) % Lymphocytes % (Manual) (25-50) % Monocytes % (Manual) (2-11) % Eosinophils % (Manual) (0-4) % Hypersegmented Neuts Smudge Cells Platelet Estimate Clumped Platelets Giant Platelets Polychromasia Macrocytosis Target Cells Sodium (136-145) mmol/L Potassium (3.5-5.1) mmol/L Chloride (98-107) mmol/L Carbon Dioxide (21-32) mmol/L BUN (7-18) mg/dL Creatinine (0.70-1.30) mg/dL Est Cr Clr Drug Dosing mL/min Estimated GFR (MDRD) Glucose (74-106) mg/dL POC Glucose 127 H (74-106) mg/dL Calcium (8.5-10.1) mg/dL Phosphorus (2.6-4.7) mg/dL Iron 53 L (65-175) ug/dL TIBC 118 L (250-450) ug/dL % Saturation 44.9 (20.0-50.0) % Ferritin 2228 H (26-388) ng/mL Med Orders - Current: Current Medications Discontinued Medications Enoxaparin Sodium (Lovenox) 30 mg SUBCUT DAILY [facility] Last Admin: 07/02/17 07:36 Dose: 30 mg Fluoxetine HCl (Prozac) 20 mg PO DAILY [facility] Last Admin: 07/06/17 08:00 Dose: Not Given Folic Acid (Folic Acid) 1 mg PO DAILY [facility] Last Admin: 07/06/17 08:00 Dose: Not Given Sodium Chloride (Normal Saline) 1,000 mls @ 1,000 mls/hr IV .BOLUS ONE Stop: 07/01/17 14:33 Last Admin: 07/01/17 13:54 Dose: 1,000 mls/hr Sodium Chloride (Normal Saline) 1,000 mls @ 250 mls/hr IV ASDIRECTED [facility] Stop: 07/02/17 00:49 Last Admin: 07/01/17 15:00 Dose: 250 mls/hr Lactated Ringer's (Ringers, Lactated) 1,000 mls @ 200 mls/hr IV ASDIRECTED [facility] Last Admin: 07/02/17 06:36 Dose: 200 mls/hr Magnesium Sulfate (Magnesium Sulfate 4 Gm In Water 100 Ml) 100 mls @ 25 mls/hr IV ONETIME ONE Stop: 07/01/17 20:38 Last Admin: 07/01/17 17:12 Dose: 25 mls/hr Potassium Chloride/Sodium Chloride (Normal Saline With 40 Meq Kcl) 1,000 mls @ 50 mls/hr IV ASDIRECTED [facility] Last Admin: 07/03/17 21:01 Dose: 90 mls/hr Magnesium Sulfate 2 gm/ Premix 50 mls @ 25 mls/hr IV ONETIME ONE Stop: 07/04/17 12:05 Last Admin: 07/04/17 10:28 Dose: 25 mls/hr Potassium Chloride/Sodium Chloride (Normal Saline With 20 Meq Kcl) 1,000 mls @ 50 mls/hr IV ASDIRECTED [facility] Last Admin: 07/05/17 05:49 Dose: 50 mls/hr Lorazepam (Ativan) 1 mg IVPUSH Q4H PRN PRN Reason: Agitation Magnesium Oxide (Magnesium Oxide) 400 mg PO BID [facility] Last Admin: 07/06/17 08:00 Dose: Not Given Multivitamins/Minerals (Thera M Plus) 1 tab PO DAILY [facility] Last Admin: 07/06/17 08:00 Dose: Not Given Nicotine (Habitrol) 14 mg TRDERM DAILY [facility] Last Admin: 07/06/17 07:54 Dose: 14 mg Pantoprazole Sodium (Protonix Iv) 40 mg IVPUSH BID@0800,2000 [facility] Last Admin: 07/02/17 07:36 Dose: 40 mg Pantoprazole Sodium (Protonix Iv) 40 mg IVPUSH BID [facility] Last Admin: 07/04/17 08:51 Dose: 40 mg Pantoprazole Sodium (Protonix) 40 mg PO ACBREAKFAST [facility] Last Admin: 07/06/17 06:35 Dose: 40 mg Sodium Chloride (Saline Flush) 10 ml FLUSH ASDIRECTED PRN PRN Reason: Keep Vein Open Sodium Phosphate (Neutra-Phos) 500 mg PO BID [facility] Last Admin: 07/04/17 10:08 Dose: Not Given Sodium Phosphate (Neutra-Phos) 250 mg PO DAILY [facility] Last Admin: 07/05/17 11:00 Dose: 250 mg Sodium Phosphate (Neutra-Phos) 250 mg PO BID [facility] Last Admin: 07/06/17 08:00 Dose: Not Given Thiamine HCl (Vitamin B-1) 100 mg PO DAILY [facility] Last Admin: 07/06/17 08:00 Dose: Not Given Trazodone HCl (Trazodone) 100 mg PO BEDTIME [facility] Last Admin: 07/05/17 20:42 Dose: 100 mg *Q Meaningful Use (DIS) - VTE *Q VTE Criteria *Q: - Stroke *Q Stroke Criteria *Q: - AMI *Q AMI Criteria *Q:
== END 2017-07-06 09:13 | disposition swing bed (61) | DRG 557 ==
LOC: VM.ED 13:07 → VM.MS 15:26
PROVIDERS: ADMIT Family Medicine; ATTEND Family Medicine
DX: M62.82 Rhabdomyolysis (principal); K85.90 Acute pancreatitis without necrosis or infection, unspecified; R41.0 Disorientation, unspecified; R32 Unspecified urinary incontinence; R15.9 Full incontinence of feces; N17.9 Acute kidney failure, unspecified; F10.231 Alcohol dependence with withdrawal delirium; E46 Unspecified protein-calorie malnutrition; E86.1 Hypovolemia; G72.1 Alcoholic myopathy; I10 Essential (primary) hypertension; F17.210 Nicotine dependence, cigarettes, uncomplicated; E87.6 Hypokalemia; E83.42 Hypomagnesemia; R19.5 Other fecal abnormalities; F32.9 Major depressive disorder, single episode, unspecified; R73.9 Hyperglycemia, unspecified; D69.6 Thrombocytopenia, unspecified; G47.00 Insomnia, unspecified; E83.39 Other disorders of phosphorus metabolism; J44.9 Chronic obstructive pulmonary disease, unspecified; F03.90 Unspecified dementia, unspecified severity, without behavioral disturbance, psychotic disturbance, mood disturbance, and anxiety; I65.29 Occlusion and stenosis of unspecified carotid artery; E78.5 Hyperlipidemia, unspecified; L89.159 Pressure ulcer of sacral region, unspecified stage; D64.9 Anemia, unspecified
CPT/HCPCS: 36415; 70450; 71010; 80053; 80305; 81001; 82550; 82553; 83605; 83735; 84100; 84443; 85025; 85610; 86140; 87040 ×2; 93005; 96360; 96361; 99285; G0480; J7030 ×2; 51702; 80048; 80076; 81003; 82150; 82607; 82728; 82746; 82962; 82977; 83036; 83540; 83550; 83690; 85014; 85018; 85652; 85730; 93010; 97161-GP; 97165-GO; A9270-GY; C9113; G0328; J1650; J3475; J3480; J7120

== ENCOUNTER 2017-07-06 09:11 | Inpatient (IN) | payer MEDICARE ==
[2017-07-06] MEDS: Magnesium Oxide 400 MG Tab PO SCH (20:15)
[2017-07-06] MEDS: Phosphorus #1 250 MG Tab PO SCH (20:16)
[2017-07-06] MEDS: traZODone 50 MG Tab PO SCH (20:16)
[2017-07-07] MEDS: Pantoprazole 40 MG Tab.CR PO SCH (06:35)
[2017-07-07] MEDS: Nicotine 14 MG/24 Hr Patch TRDERM SCH (07:59)
[2017-07-07] MEDS: Magnesium Oxide 400 MG Tab PO SCH ×2 (08:06→21:05)
[2017-07-07] MEDS: Folic Acid 1 MG Tab PO SCH (08:06)
[2017-07-07] MEDS: Phosphorus #1 250 MG Tab PO SCH ×2 (08:06→21:09)
[2017-07-07] MEDS: Thiamine 100 MG Tab PO SCH (08:06)
[2017-07-07] MEDS: FLUoxetine 20 MG Cap PO SCH (08:06)
[2017-07-07] MEDS: Multivitamins with Iron/Calcium/Folic Acid/Minerals Tab PO SCH (08:06)
[2017-07-07] MEDS: traZODone 50 MG Tab PO SCH (21:05)
[2017-07-08] MEDS: Pantoprazole 40 MG Tab.CR PO SCH (06:45)
[2017-07-08] MEDS: Nicotine 14 MG/24 Hr Patch TRDERM SCH (07:33)
[2017-07-08] MEDS: Folic Acid 1 MG Tab PO SCH (07:34)
[2017-07-08] MEDS: Magnesium Oxide 400 MG Tab PO SCH ×2 (07:34→21:19)
[2017-07-08] MEDS: Thiamine 100 MG Tab PO SCH (07:34)
[2017-07-08] MEDS: Phosphorus #1 250 MG Tab PO SCH ×2 (07:34→21:19)
[2017-07-08] MEDS: Multivitamins with Iron/Calcium/Folic Acid/Minerals Tab PO SCH (07:34)
[2017-07-08] MEDS: FLUoxetine 20 MG Cap PO SCH (07:34)
[2017-07-08] MEDS: traZODone 50 MG Tab PO SCH (21:19)
[2017-07-09] MEDS: Pantoprazole 40 MG Tab.CR PO SCH (06:28)
[2017-07-09] MEDS: Nicotine 14 MG/24 Hr Patch TRDERM SCH (07:52)
[2017-07-09] MEDS: Magnesium Oxide 400 MG Tab PO SCH ×2 (07:52→20:37)
[2017-07-09] MEDS: Folic Acid 1 MG Tab PO SCH (07:52)
[2017-07-09] MEDS: Thiamine 100 MG Tab PO SCH (07:53)
[2017-07-09] MEDS: FLUoxetine 20 MG Cap PO SCH (07:53)
[2017-07-09] MEDS: Phosphorus #1 250 MG Tab PO SCH ×2 (07:53→20:38)
[2017-07-09] MEDS: Multivitamins with Iron/Calcium/Folic Acid/Minerals Tab PO SCH (07:53)
[2017-07-09] MEDS: traZODone 50 MG Tab PO SCH (20:37)
[2017-07-10 05:33] VITALS: BP 135/80
[2017-07-10] MEDS: Pantoprazole 40 MG Tab.CR PO SCH (06:37)
[2017-07-10] MEDS: Nicotine 14 MG/24 Hr Patch TRDERM SCH (08:13)
[2017-07-10] MEDS: Magnesium Oxide 400 MG Tab PO SCH ×2 (08:14→08:19)
[2017-07-10] MEDS: Thiamine 100 MG Tab PO SCH ×2 (08:14→08:19)
[2017-07-10] MEDS: Phosphorus #1 250 MG Tab PO SCH ×2 (08:14→08:19)
[2017-07-10] MEDS: Folic Acid 1 MG Tab PO SCH ×2 (08:14→08:19)
[2017-07-10] MEDS: FLUoxetine 20 MG Cap PO SCH (08:14)
[2017-07-10] MEDS: Multivitamins with Iron/Calcium/Folic Acid/Minerals Tab PO SCH ×2 (08:14→08:19)
--- NOTE | 2017-07-10 10:12 | PCM.DCSUM1 ---
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 -COPD; long-term smoker with approximately 40 pack year Hx -Acute pancreatitis; resolved, mild, asymptomatic but had elevated amylase and lipase -Dementia; MMSE 25/30; probably vascular and alcoholrelated -Atherosclerosis; carotid artery disease and peripheral vascular disease, noted in past although does have palpable pedal pulses now -Hx hypertension; no longer on Rx, BP OK -Hx hyperlipidemia; has been on statins in the past -Macrocytic anemia with normal iron -Abnormal liver enzymes -Mild pressure sores on coccyx and sacrum Reason for Admission: Transfer to Swing Bed, see D/C summary of 07/06/17 Initial Findings: Stable, pressure ulcers resolved; no further lab done. Occupational Therapy Geriatric Functional Assessment shows dementia and poor functioning, needs Skilled Care Treatment and Course in Hospital: He did well on swing bed, frequently refused all of his medications including his vitamins. Continued to walk with a walker, discontinued from PT. Vital signs OK. Condition on discharge: -Heart regular, no murmur -Lungs clear, hyperresonance consistent with COPD -Clubbing of nails consistent with COPD -Answers questions appropriately but with his dementia he converses on a fairly superficial level Discharge Plan: -He should continue PT, myopathy might improve now that he is abstinent from alcohol -He might improve enough to go home but of course then alcohol would be a problem again -Encouraged to take his vitamins including thiamine, but per his request, Protonix and nicotine patch R D/Cd, says he doesnt need them -Full Code status - Discharge Data Discharge Date: 07/10/17 Discharge Disposition: DC/Tfer to SNF 03 Condition: Good - Patient Summary/Data Consults: Consultations 07/06/17 10:47 OT Evaluation and Treatment [CONS] Routine 07/06/17 12:27 Consult to Material Control Specialist [CONS] Routine OT Evaluation and Treatment [CONS] Routine OT Evaluation and Treatment [CONS] Routine - Discharge Plan Home Medications: Home Meds FLUoxetine [PROzac] 20 mg PO DAILY cap 07/10/17 [Rx] Folic Acid 1 mg PO DAILY tablet 07/10/17 [Rx] Magnesium Oxide 400 mg PO BID tablet 07/10/17 [Rx] Thiamine [Vitamin B-1] 100 mg PO DAILY tablet 07/10/17 [Rx] traZODone 100 mg PO BEDTIME tablet 07/10/17 [Rx] - Patient Data Vitals - Most Recent: Last Vital Signs Temp 36.3 C 07/10/17 05:31 Pulse 57 L 07/10/17 05:31 Resp 18 07/10/17 05:31 BP 135/80 07/10/17 05:31 Pulse Ox 99 07/10/17 05:31 Weight - Most Recent: 63.73 kg I&O - Last 24 hours: Intake & Output 07/09/17 07/10/17 07/10/17 22:59 06:59 14:59 Intake Total 360 120 120 Balance 360 120 120 Med Orders - Current: Current Medications Discontinued Medications Fluoxetine HCl (Prozac) 20 mg PO DAILY [facility] Last Admin: 07/10/17 08:14 Dose: 20 mg Folic Acid (Folic Acid) 1 mg PO DAILY [facility] Last Admin: 07/10/17 08:19 Dose: Not Given Magnesium Oxide (Magnesium Oxide) 400 mg PO BID [facility] Last Admin: 07/10/17 08:19 Dose: Not Given Multivitamins/Minerals (Thera M Plus) 1 tab PO DAILY [facility] Last Admin: 07/10/17 08:19 Dose: Not Given Nicotine (Habitrol) 14 mg TRDERM DAILY [facility] Last Admin: 07/10/17 08:13 Dose: 14 mg Pantoprazole Sodium (Protonix) 40 mg PO ACBREAKFAST [facility] Last Admin: 07/10/17 06:37 Dose: 40 mg Sodium Phosphate (Neutra-Phos) 250 mg PO BID [facility] Last Admin: 07/10/17 08:19 Dose: Not Given Thiamine HCl (Vitamin B-1) 100 mg PO DAILY [facility] Last Admin: 07/10/17 08:19 Dose: Not Given Trazodone HCl (Trazodone) 100 mg PO BEDTIME [facility] Last Admin: 07/09/17 20:37 Dose: 100 mg *Q Meaningful Use (DIS) - VTE *Q VTE Criteria *Q: - Stroke *Q Stroke Criteria *Q: - AMI *Q AMI Criteria *Q:
== END 2017-07-10 09:55 | DRG 93 ==
LOC: VM.MS 09:13
PROVIDERS: ADMIT Family Medicine; ATTEND Family Medicine
DX: G72.1 Alcoholic myopathy (principal); F10.20 Alcohol dependence, uncomplicated; J44.9 Chronic obstructive pulmonary disease, unspecified; F17.210 Nicotine dependence, cigarettes, uncomplicated; F03.90 Unspecified dementia, unspecified severity, without behavioral disturbance, psychotic disturbance, mood disturbance, and anxiety; I25.10 Atherosclerotic heart disease of native coronary artery without angina pectoris; I73.9 Peripheral vascular disease, unspecified; D64.9 Anemia, unspecified; L89.159 Pressure ulcer of sacral region, unspecified stage; R94.5 Abnormal results of liver function studies
CPT/HCPCS: 97110-GO; 97110-GP; 97532-GO; 97535-GO; A9270-GY